=== PATIENT | male | born 1935 | race Caucasian/White ===

== ENCOUNTER 2017-02-28 08:01 | Day surgery (SDC) | payer MEDICARE, BC ==
[2017-02-28] MEDS ORDERED: fentaNYL 100 MCG/2 ML SDV ONE (09:26)
[2017-02-28] MEDS ORDERED: Propofol 200 MG/20 ML SDV ONE (09:26)
[2017-02-28] MEDS ORDERED: Sodium Chloride 0.9% 1,000 ML IV SCH (09:30)
[2017-02-28 10:57] VITALS: BP 116/77
--- NOTE | 2017-02-28 14:59 | OR ---
DATE OF PROCEDURE: 02/28/2017 PROCEDURE: Colonoscopy. FINDINGS: 1. Diverticulosis, mild. 2. Transverse colon polyp, 5 mm, completely removed using cold biopsy forceps. 3. Ascending colon polyp, 5 mm, completely removed using cold biopsy forceps. 4. Descending colon polyp, 5 mm, completely removed using cold biopsy forceps. COMPLICATIONS: None. PONY RIDE ATTENDANT: None. ANESTHESIA: MAC. PREOPERATIVE DIAGNOSIS: History of colon polyps. POSTOPERATIVE DIAGNOSIS: History of colon polyps. RISKS: Risks, benefits, alternatives, and limitations, including, but not limited to infection, bleeding, and perforation were explained to the patient and wished to proceed. PROCEDURE IN DETAIL: The patient was placed in left lateral decubitus position. Digital rectal exam was performed without abnormality. The scope was introduced and advanced atraumatically to the ileocecal valve. The scope was brought back to the ascending, transverse, descending colon, and retroflexed. The aforementioned polyps were all approximately 5 mm, all completely removed using cold biopsy forceps, and no abnormalities noted after removal. Diverticulosis would be described as mild and limited to sigmoid colon. No other masses, blood, or any other abnormalities and retroflexed. The patient tolerated the procedure well. Messi Mendez MD /[id number]
--- NOTE | 2017-02-28 14:59 | OR ---
DATE OF PROCEDURE: 02/28/2017 CORRECTION: PREOPERATIVE DIAGNOSIS: History of colon polyps. POSTOPERATIVE DIAGNOSIS: History of colon polyps. Messi Mendez MD /[id number]
== END 2017-02-28 11:20 | disposition home or self-care (01) ==
LOC: JP.SDS 08:01
PROVIDERS: ATTEND Surgery
PROC: 0DBK8ZX Excision of Ascending Colon, Via Natural or Artificial Opening Endoscopic, Diagnostic (ICD-10-PCS; principal; 2017-02-28)
PROC: 0DBL8ZX Excision of Transverse Colon, Via Natural or Artificial Opening Endoscopic, Diagnostic (ICD-10-PCS; 2017-02-28)
PROC: 0DBM8ZX Excision of Descending Colon, Via Natural or Artificial Opening Endoscopic, Diagnostic (ICD-10-PCS; 2017-02-28)
DX: D12.2 Benign neoplasm of ascending colon (principal); D12.4 Benign neoplasm of descending colon; D12.3 Benign neoplasm of transverse colon; K57.30 Diverticulosis of large intestine without perforation or abscess without bleeding
CPT/HCPCS: 45380; 88305; J2704; J3010; J7040